=== PATIENT | male | born 1980 | race African-American/Black ===

== ENCOUNTER 2024-02-16 19:26 | Emergency (ER) | payer SELFPAY ==
[~2024-02-16] VITALS: Ht 180.3 cm; Wt 143.0 kg
[2024-02-16 19:48] VITALS: O2SAT 97
[2024-02-16] MEDS: IBUPROFEN 800MG TABLET PO ONE (23:15)
[2024-02-17] MEDS ORDERED: IBUP-2029 MT (01:04)
[2024-02-17 02:50] VITALS: BP 140/88; PULSE 101; RESP 16; TEMP 36.78072; O2SAT 99
== END 2024-02-17 01:45 | disposition home or self-care (01) ==
LOC: ER 19:26
DX: M54.50 Low back pain, unspecified (principal)
CPT/HCPCS: 72131; 99284